=== PATIENT | female | born 1970 | race Caucasian/White ===

== ENCOUNTER 2017-06-22 10:54 | Emergency (ER) | payer OTHER ==
--- NOTE | 2017-06-22 12:20 | CT ---
PROCEDURE: CT HEAD WITHOUT CONTRAST. HISTORY: Dizziness COMPARISON: None available. TECHNIQUE: Axial computed tomography images were obtained through the head/brain without intravenous contrast. Radiation dose: Total exam DLP = 883.71 mGy-cm. This CT exam was performed using one or more of the following dose reduction techniques: Automated exposure control, adjustment of the mA and/or kV according to patient size, and/or use of iterative reconstruction technique. FINDINGS: HEMORRHAGE: No acute parenchymal, subarachnoid or extra-axial hemorrhage. Hemorrhage. BRAIN: No evidence of large acute infarct. No mass effect or edema. No atrophy or chronic microvascular ischemic changes. . There small low-attenuation foci inferior margins both basal nuclei likely representing dilated perivascular spaces. No obvious parenchymal nor extra-axial masses or collections identified on this noncontrast study. VENTRICLES: . No obstructive hydrocephalus. CALVARIUM: Calvarium intact PARANASAL SINUSES: Minor mucosal thickening seen in the left maxillary antrum MASTOID AIR CELLS: Unremarkable as visualized. No inflammatory changes. OTHER FINDINGS: None. IMPRESSION: No acute intracranial hemorrhage.
[2017-06-22 13:20] LABS: PH,URINE 6.5 (4.7-8.0); URINE BILIRUBIN NEGATIVE (NEGATIVE); URINE BLOOD NEGATIVE (NEGATIVE); URINE GLUCOSE (UA) NEGATIVE (NEGATIVE); URINE LEUKOCYTE ESTERASE NEGATIVE Leu/uL (NEGATIVE); URINE PROTEIN NEGATIVE mg/dL (<30 mg/dL); URINE UROBILINOGEN 0.2 E.U./dL (<1 E.U./dL)
[2017-06-22 13:23] LABS: URINE APPEARANCE SL CLOUDY (CLEAR); URINE COLOR LIGHT YELLOW (YELLOW)
[2017-06-22 13:30] LABS: BASO # 0.01 K/mm3 (0.0-2.0); BASO % 0.2 % (0.0-3.0); EOS # 0.1 (0.0-0.7); GRAN # 3.4 (1.4-6.5); GRAN % 52.4 % (50.0-68.0); HEMOGLOBIN 12.6 g/dL (12.0-16.0); LYMPH # 2.6 (1.2-3.4); LYMPH % 40.6 % (22.0-35.0); MEAN CORPUSCULAR HEMOGLOBIN 27.5 pg (25.0-35.0); MEAN CORPUSCULAR HGB CONC 33.2 g/dl (31.0-37.0); MEAN PLATELET VOLUME 8.9 fl (7.0-11.0); MONO # 0.3 (0.1-0.6); MONO % 4.8 % (1.0-6.0); RBC 4.58 10^6/uL (3.5-6.1); RED CELL DISTRIBUTION WIDTH 15.3 % (11.5-14.5); WHITE BLOOD COUNT 6.5 10^3/ul (4.5-11.0)
[2017-06-22 13:42] LABS: INR 0.98 (0.93-1.08); PARTIAL THROMBOPLASTIN TIME 27.6 Seconds (25.1-36.5); PROTHROMBIN TIME 11.3 SECONDS (9.4-12.5)
[2017-06-22 13:49] LABS: ALB/GLOB RATIO 1.4 (1.1-1.8); ALBUMIN 4.1 g/dL (3.0-4.8); ALT/SGPT 27 U/L (7-56); AST/SGOT 27 U/L (14-36); BLOOD UREA NITROGEN 14 mg/dL (7-21); CALCIUM 8.8 mg/dL (8.4-10.5); GFR AFRICAN-AMERICAN > 60; GFR NON-AFRICAN AMERICAN > 60
--- NOTE | 2017-06-22 15:08 | ED PDOC ---
Arrival/HPI - General Chief Complaint: Dizziness/Lightheaded Time Seen by Provider: 06/22/17 11:42 Historian: Patient - History of Present Illness Narrative History of Present Illness (Text): 06/22/17 15:04 47yo female with Past medical history of Asthma who present with complaint lightheadedness. She describes it as "heaviness". Notes that symptoms has been intermittent now for 6yrs. States it started after having gastric by pass. She states she decided to come to Emergency department today because she had the episode twice yesterday. Notes that she have never seen a Doctor for the symptoms. She denies nausea, focal weakness, vomiting, recent URI, fever, chills , headache, slurred speech, visual change, photophobia, any other complaint. Past Medical History - Provider Review Nursing Documentation Reviewed: Yes - Infectious Disease Hx of Infectious Diseases: None - Reproductive Menopause: No - Cardiac Hx Cardiac Disorders: No - Pulmonary Hx Asthma: Yes - Endocrine/Metabolic Hx Endocrine Disorders: No - Integumentary Hx Dermatological Disorder: No - Gastrointestinal Other/Comment: gastric by pass - Psychiatric Hx Psychophysiologic Disorder: No Hx Substance Use: No - Surgical History Hx Section: Yes Other/Comment: gastric bypass - Anesthesia Hx Anesthesia: No Family/Social History - Physician Review Nursing Documentation Reviewed: Yes Family/Social History: Unknown Family HX Smoking Status: Unknown If Ever Smoked Hx Alcohol Use: No Hx Substance Use: No Allergies/Home Meds Allergies/Adverse Reactions: Allergies aspirin Allergy (Verified 06/22/17 11:50) CONGESTION Review of Systems - Physician Review All systems were reviewed & negative as marked: Yes - Review of Systems Constitutional: Normal Eyes: Normal ENT: Normal Respiratory: Normal Cardiovascular: Normal Gastrointestinal: Normal Genitourinary Female: Normal Musculoskeletal: Normal Skin: Normal Neurological: Dizziness. absent: Headache, Focal Weakness, Gait Changes, Speech Changes, Facial Droop Endocrine: Normal Hemo/Lymphatic: Normal Psychiatric: Normal Physical Exam Vital Signs Reviewed: Yes Vital Signs Temp Pulse Resp BP Pulse Ox 06/22/17 15:27 98.0 F 78 19 120/89 99 06/22/17 14:47 61 18 118/75 98 06/22/17 13:28 59 L 18 116/71 98 06/22/17 11:33 98.5 F 57 L 16 114/76 100 Temperature: Afebrile Blood Pressure: Normal Pulse: Regular Respiratory Rate: Normal Appearance: Positive for: Well-Appearing, Non-Toxic, Comfortable Pain Distress: None Mental Status: Positive for: Alert and Oriented X 3 - Systems Exam Head: Present: Atraumatic, Normocephalic Pupils: Present: PERRL Extroacular Muscles: Present: EOMI Conjunctiva: Present: Normal Mouth: Present: Moist Mucous Membranes Neck: Present: Normal Range of Motion Respiratory/Chest: Present: Clear to Auscultation, Good Air Exchange. No: Respiratory Distress, Accessory Muscle Use Cardiovascular: Present: Regular Rate and Rhythm, Normal S1, S2. No: Murmurs Abdomen: No: Tenderness, Distention, Peritoneal Signs Back: Present: Normal Inspection Upper Extremity: Present: Normal Inspection. No: Cyanosis, Edema Lower Extremity: Present: Normal Inspection. No: Edema Neurological: Present: GCS=15, CN II-XII Intact, Speech Normal, Motor Func Grossly Intact, Normal Sensory Function, Normal Cerebellar Funct, Norm Deep Tendon Reflexes, Gait Normal, Memory Normal, Normal 2Pt Descrimination, Other ( No focal neurological deficit) Skin: Present: Warm, Dry, Normal Color. No: Rashes Psychiatric: Present: Alert, Oriented x 3, Normal Insight, Normal Concentration Medical Decision Making ED Course and Treatment: 06/22/17 20:27 Pt presented for stated history. She was neurologically intact in Emergency department, Her lab was unremarkable. EKG NSR @ 67bpm. Pt's Head CT from the last last week was reviewed and it was negative. No indication of head CT at this time. Plan was to DC with Neurology and dispo pt accordingly. The result and plan was DW both pt and the her family by the bedside. Pt however eloped from the Emergency department with her family. I spoke with Dr. Sheppard briefly and she was supposed to call back, but never did. - Lab Interpretations Lab Results: 06/22/17 13:23 06/22/17 13:23 Lab Results 06/22/17 13:23: Sodium 142, Potassium 4.1, Chloride 108 H, Carbon Dioxide 23, Anion Gap 15, BUN 14, Creatinine 0.6 L, Est GFR ( Amer) > 60, Est GFR ( Non-Af Amer) > 60, Random Glucose 86, Calcium 8.8, Total Bilirubin 0.7, AST 27, ALT 27, Alkaline Phosphatase 63, Total Protein 7.0, Albumin 4.1, Globulin 2.9, Albumin/Globulin Ratio 1.4 06/22/17 13:23: PT 11.3, INR 0.98, APTT 27.6 06/22/17 13:23: WBC 6.5, RBC 4.58, Hgb 12.6, Hct 38.0, MCV 83.0, MCH 27.5, MCHC 33.2, RDW 15.3 H, Plt Count 263, MPV 8.9, Gran % 52.4, Lymph % (Auto) 40.6 H, [place] % (Auto) 4.8, Eos % (Auto) 2.0, Baso % (Auto) 0.2, Gran # 3.40, Lymph # ( Auto) 2.6, [place] # (Auto) 0.3, Eos # (Auto) 0.1, Baso # (Auto) 0.01 06/22/17 13:00: Urine Color Light yellow, Urine Appearance Sl cloudy, Urine pH 6.5, Ur Specific [place] 1.015, Urine Protein Negative, Urine Glucose (UA) Negative, Urine Ketones Negative, Urine Blood Negative, Urine Nitrate Negative, Urine Bilirubin Negative, Urine Urobilinogen 0.2, Ur Leukocyte Esterase Negative 06/22/17 11:25: POC Glucose (mg/dL) 86 - RAD Interpretation Radiology Orders: 06/22/17 11:54 HEAD W/O CONTRAST [CT] Stat Disposition/Present on Arrival - Present on Arrival Any Indicators Present on Arrival: No History of DVT/PE: No History of Uncontrolled Diabetes: No Urinary Catheter: No History of Decub. Ulcer: No History Surgical Site Infection Following: None - Disposition Have Diagnosis and Disposition been Completed?: Yes Diagnosis: Lightheadedness Disposition: HOME/ ROUTINE Disposition Time: 15:10 Patient Plan: Discharge Condition: STABLE Discharge Instructions (ExitCare): Vertigo (a Type of Dizziness) Additional Instructions: Follow up with your doctor/Neurologist Return to Emergency department or any new or worsening symptoms Referrals: Estrellita Sheppard MD [Staff Provider] - Follow up with primary Forms: [employer] ([place])
[2017-06-22 15:28] VITALS: BP 120/89; PULSE 78; RESP 19; TEMP 98; O2SAT 99
--- NOTE | 2017-06-22 21:44 | CARD ---
APPROVED REPORT EKG Measurement Heart [id number] <Conclusion> Normal sinus rhythm Normal ECG
== END 2017-06-22 15:28 | disposition home or self-care (01) ==
LOC: ED 10:54
DX: R42 Dizziness and giddiness (principal)